=== PATIENT | female | born 1930 | race Caucasian/White ===

== ENCOUNTER 2017-04-09 12:17 | Inpatient (IN) | payer MEDICARE, BC ==
[2017-04-09] MEDS ORDERED: FUROSEMIDE 40 MG SOL IV SCH (13:00)
[2017-04-09] MEDS: POTASSIUM CHLORIDE 10 MEQ TER PO SCH ×2 (13:09→16:04)
[2017-04-09] MEDS: SODIUM CHLORIDE 0.9% FLUSH 10 ML SOL IV SCH ×2 (13:09→20:32)
[2017-04-09] MEDS ORDERED: ROSUVASTATIN CALCIUM 10 MG TAB PO SCH (15:45)
[2017-04-09] MEDS: WARFARIN SODIUM 2 MG TAB PO SCH (17:41)
[2017-04-09] MEDS: ACETAMINOPHEN 500 MG 500 MG TAB PO SCH (20:33)
[2017-04-09] MEDS: DIPHENHYDRAMINE 25 MG CAP PO SCH (20:33)
[2017-04-09] MEDS: ROSUVASTATIN CALCIUM 10 MG TAB PO SCH (22:49)
[2017-04-10] MEDS: SODIUM CHLORIDE 0.9% FLUSH 10 ML SOL IV SCH ×4 (05:00→20:22)
[2017-04-10 07:30] LABS: CALCIUM 8.4 mg/dl (8.5-10.1); POTASSIUM 3.6 mMol/L (3.5-5.1)
[2017-04-10] MEDS ORDERED: FUROSEMIDE 40 MG SOL IV SCH (09:00)
[2017-04-10] MEDS: DILTIAZEM ER 120 MG C24 PO SCH (09:36)
[2017-04-10] MEDS: LEVOTHYROXINE SODIUM 50 MCG TAB PO SCH (09:37)
[2017-04-10] MEDS: ISOSORBIDE MONONITRATE 30 MG TER PO SCH (09:37)
[2017-04-10] MEDS: TIMOLOL MALEATE EACHEYE SCH (09:38)
[2017-04-10] MEDS: METOPROLOL SUCCINATE 50 MG ER TAB PO SCH (09:38)
[2017-04-10] MEDS: SERTRALINE HYDROCHLORIDE 50 MG TAB PO SCH (09:38)
[2017-04-10] MEDS: CLONIDINE 0.1 MG TAB PO SCH ×2 (10:29→20:22)
[2017-04-10] MEDS: POTASSIUM CHLORIDE 10 MEQ TER PO SCH ×2 (10:30→20:22)
[2017-04-10] MEDS: QUINAPRIL 20 MG TAB PO SCH (10:30)
[2017-04-10] MEDS: FUROSEMIDE 40 MG SOL IV SCH ×2 (10:30→15:49)
[2017-04-10] MEDS: WARFARIN SODIUM 2 MG TAB PO SCH (17:31)
[2017-04-10] MEDS: ACETAMINOPHEN 500 MG 500 MG TAB PO SCH (21:06)
[2017-04-10] MEDS: DIPHENHYDRAMINE 25 MG CAP PO SCH (21:06)
[2017-04-11] MEDS: SODIUM CHLORIDE 0.9% FLUSH 10 ML SOL IV SCH ×4 (06:33→20:54)
[2017-04-11 08:00] LABS: CALCIUM 8.9 mg/dl (8.5-10.1); POTASSIUM 3.6 mMol/L (3.5-5.1)
[2017-04-11] MEDS ORDERED: WARFARIN SODIUM 2 MG TAB PO SCH ×2 (08:35→09:00)
[2017-04-11] MEDS ORDERED: WARFARIN SODIUM 3 MG TAB PO SCH ×2 (09:00→18:00)
[2017-04-11] MEDS: FUROSEMIDE 40 MG SOL IV SCH (09:05)
[2017-04-11] MEDS: ISOSORBIDE MONONITRATE 30 MG TER PO SCH (09:27)
[2017-04-11] MEDS: CLONIDINE 0.1 MG TAB PO SCH (09:27)
[2017-04-11] MEDS: LEVOTHYROXINE SODIUM 50 MCG TAB PO SCH (09:27)
[2017-04-11] MEDS: POTASSIUM CHLORIDE 10 MEQ TER PO SCH ×2 (09:28→20:54)
[2017-04-11] MEDS: DILTIAZEM ER 120 MG C24 PO SCH (09:29)
[2017-04-11] MEDS: QUINAPRIL 20 MG TAB PO SCH (09:30)
[2017-04-11] MEDS: TIMOLOL MALEATE EACHEYE SCH (09:31)
[2017-04-11] MEDS: METOPROLOL SUCCINATE 50 MG ER TAB PO SCH (09:32)
[2017-04-11] MEDS: SERTRALINE HYDROCHLORIDE 50 MG TAB PO SCH (09:34)
[2017-04-11] MEDS: FUROSEMIDE 40 MG TAB PO SCH (14:45)
[2017-04-11] MEDS: DIPHENHYDRAMINE 25 MG CAP PO SCH (20:53)
[2017-04-11] MEDS: ACETAMINOPHEN 500 MG 500 MG TAB PO SCH (20:54)
[2017-04-11] MEDS: ROSUVASTATIN CALCIUM 10 MG TAB PO SCH (20:56)
[2017-04-12 00:52] VITALS: O2SAT 93
[2017-04-12] MEDS: SODIUM CHLORIDE 0.9% FLUSH 10 ML SOL IV SCH ×2 (06:17→13:52)
[2017-04-12] MEDS ORDERED: LEVOTHYROXINE SODIUM 50 MCG TAB PO SCH (07:00)
[2017-04-12 07:31] LABS: CALCIUM 8.6 mg/dl (8.5-10.1); POTASSIUM 3.9 mMol/L (3.5-5.1)
[2017-04-12 08:16] VITALS: BP 143/85; PULSE 76; RESP 12; TEMP 97.2
[2017-04-12] MEDS: DILTIAZEM ER 120 MG C24 PO SCH (08:27)
[2017-04-12] MEDS: ISOSORBIDE MONONITRATE 30 MG TER PO SCH (08:29)
[2017-04-12] MEDS: POTASSIUM CHLORIDE 10 MEQ TER PO SCH (08:30)
[2017-04-12] MEDS: SERTRALINE HYDROCHLORIDE 50 MG TAB PO SCH (08:31)
[2017-04-12] MEDS: TIMOLOL MALEATE EACHEYE SCH (08:33)
[2017-04-12] MEDS ORDERED: FUROSEMIDE 40 MG TAB PO SCH (09:00)
[2017-04-12] MEDS: QUINAPRIL 20 MG TAB PO SCH (09:45)
[2017-04-12] MEDS: METOPROLOL SUCCINATE 50 MG ER TAB PO SCH (09:45)
[2017-04-13] MEDS ORDERED: WARFARIN SODIUM 1 MG TAB PO SCH ×2 (15:43→18:00)
== END 2017-04-12 12:55 | disposition home or self-care (01) | DRG 293 ==
LOC: ACUTE CARE 12:35
PROVIDERS: ADMIT Family Medicine; ATTEND Family Medicine
DX: I50.9 Heart failure, unspecified (principal); I48.2 Chronic atrial fibrillation; Z79.01 Long term (current) use of anticoagulants; I11.0 Hypertensive heart disease with heart failure; E03.9 Hypothyroidism, unspecified; E78.5 Hyperlipidemia, unspecified; E87.6 Hypokalemia
CPT/HCPCS: 36415; 80048; 85610; 93306; J1940; A9270; A9270-GY